=== PATIENT | female | born 2000 | race African-American/Black ===

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

== ENCOUNTER 2018-08-05 11:43 | Emergency (ER) | payer MEDICARE ==
[~2018-08-05] VITALS: Ht 152.4 cm; Wt 59.0 kg
[2018-08-05] MEDS ORDERED: HYDROCODONE/ACETAMINOPHEN 5/325MG TABLET PO ONE ×2 (14:00→16:45)
[2018-08-05] MEDS ORDERED: LIDOCAINE HCL/PF 1% 2ML VIAL INFIL ONE (14:00)
[2018-08-05] MEDS ORDERED: LIDOCAINE HCL/PF 1% 10 MG/ML 5ML VIAL IJ NR (14:45)
[2018-08-05] MEDS ORDERED: LIDOCAINE/EPINEPHR/TETRACAINE 3ML TP ONE (16:45)
[2018-08-05] MEDS ORDERED: BACITRACIN ZINC OINT UDPKT TOP ONE (18:15)
[2018-08-05 18:27] VITALS: BP 105/78
== END 2018-08-05 18:28 | disposition home or self-care (01) ==
LOC: ER 13:32
DX: M79.645 Pain in left finger(s) (principal)
CPT/HCPCS: 11730; 73140; 81025; 99284; J3490

== ENCOUNTER 2018-08-12 22:59 | Emergency (ER) | payer MEDICAID, MEDICARE ==
[~2018-08-12] VITALS: Ht 154.9 cm; Wt 59.0 kg
[2018-08-13] MEDS ORDERED: LIDOCAINE HCL/EPINEPHRINE 1%-EPI 1:100,000 20 ML VIAL INFIL ONE (00:30)
[2018-08-13 01:08] VITALS: BP 101/59
== END 2018-08-13 01:10 | disposition home or self-care (01) ==
LOC: ER 22:59
DX: S61.303A Unspecified open wound of left middle finger with damage to nail, initial encounter (principal); V49.49XA Driver injured in collision with other motor vehicles in traffic accident, initial encounter; Y93.89 Activity, other specified; Y92.89 Other specified places as the place of occurrence of the external cause; Y99.8 Other external cause status
CPT/HCPCS: 11730; 99283; J3490

== ENCOUNTER 2018-12-02 16:37 | Emergency (ER) | payer MEDICAID, MEDICARE ==
[~2018-12-02] VITALS: Ht 152.4 cm; Wt 61.4 kg
[2018-12-02] MEDS ORDERED: ACETAMINOPHEN 325MG TABLET PO ONE (17:30)
[2018-12-02 19:30] LABS: CLARITY URINE CLEAR (CLEAR); COLOR URINE YELLOW (YELLOW); KETONES URINE NEGATIVE (NEGATIVE); LEUKOCYTE ESTERASE URINE NEGATIVE (NEGATIVE); NITRITE URINE NEGATIVE (NEGATIVE); OCCULT BLOOD URINE NEGATIVE (NEGATIVE); PROTEIN URINE NEGATIVE (NEGATIVE); SPECIFIC GRAVITY URINE 1.014 (1.005-1.030); UROBILINOGEN URINE 0.2 E.U./dL (0.2-1.0)
[2018-12-02 20:11] VITALS: BP 114/68
== END 2018-12-02 20:10 | disposition home or self-care (01) ==
LOC: ER 16:37
DX: O99.511 Diseases of the respiratory system complicating pregnancy, first trimester (principal); M79.18 Myalgia, other site; Z3A.09 9 weeks gestation of pregnancy
CPT/HCPCS: 71045; 99284

== ENCOUNTER 2022-05-28 13:14 | Emergency (ER) | payer MEDICAID ==
[~2022-05-28] VITALS: Ht 165.1 cm; Wt 68.0 kg
[2022-05-28 13:39] VITALS: BP 106/77
[2022-05-28] MEDS ORDERED: ACETAMINOPHEN 325MG TABLET PO ONE (14:30)
[2022-05-28] MEDS ORDERED: ACET-2708 MT (15:30)
== END 2022-05-28 16:25 | disposition home or self-care (01) ==
LOC: ER 13:14
DX: S80.01XA Contusion of right knee, initial encounter (principal); W01.190A Fall on same level from slipping, tripping and stumbling with subsequent striking against furniture, initial encounter; Y93.89 Activity, other specified; Y92.89 Other specified places as the place of occurrence of the external cause
CPT/HCPCS: 73564; 99283